=== PATIENT | male | born 1970 | race Caucasian/White ===

== ENCOUNTER 2023-08-11 01:35 | Inpatient (IN) ==
[2023-08-11] MEDS ORDERED: IOPAMIDOL 100 ML BOTTLE IV ONE (01:36)
[2023-08-11] MEDS ORDERED: ACETAMINOPHEN 500 MG TABLET PO ONE (01:57)
[2023-08-11] MEDS ORDERED: 0.9 % SODIUM CHLORIDE 1,000 ML IV ONE ×2 (01:57→06:45)
[2023-08-11] MEDS ORDERED: PIPERACILLIN SODIUM/TAZOBACTAM 3.375 GM in DEXTROSE 5% IN WATER 50 ML IV ONE (02:09)
[2023-08-11] MEDS ORDERED: ACETAMINOPHEN 1,000 MG/100 ML BAG IV ONE (02:18)
[2023-08-11 03:03] LABS: ALT/SGPT 13 U/L (<40); AST/SGOT 18 U/L (<40); Albumin 4.1 gm/dL (3.2-5.2); Albumin/Globulin Ratio 1.3 (1.0-2.3); Alkaline Phosphatase 95 U/L (39-117); Bilirubin,Total 0.6 mg/dL (0.1-1.0); Blood Urea Nitrogen 15 mg/dL (6-20); Calcium 9.9 mg/dL (8.6-10.4); Carbon Dioxide 22 mmol/L (22-30); Chloride 109 mmol/L (96-108); Globulin 3.1 gm/dL (2.2-3.7); Glomerular Filtration Rate 103; Glucose 137 mg/dL (70-105)
[2023-08-11 03:13] LABS: Hematocrit 43.2 % (40.1-51.0); Mean Cell Volume 93.1 fL (80.0-100.0); Mean Corpuscular HGB Conc 32.4 g/dL (31.0-36.0); Mean Platelet Volume 12.4 fL (8.8-12.5); Platelet Count 175 K/mcL (140-440); RBC 4.64 M/mcL (4.63-6.08); Red Cell Distribution Width 13.2 % (11.5-14.5); WBC 11.4 K/mcL (4.5-11.0)
[2023-08-11 03:56] LABS: Band Neutrophils % 13 % (0-10); Lymphocytes % 10 % (15-49); Monocytes % (Manual) 5 % (1-12); Platelet Estimate NORMAL (Normal); RBC Morphology NORMAL (Normal); Segmented Neutrophils % 72 % (38-78)
[2023-08-11] MEDS ORDERED: DIAZEPAM 10 MG/2 ML SYRINGE IV ONE (04:04)
[2023-08-11 04:40] LABS: Appearance,Urine TURBID (Clear); Bacteria,Urine MANY /hpf (0); Bilirubin,Urine Negative (Negative); Color,Urine YELLOW; Culture Indicated,Urine Yes; Glucose,Urine (UA) Negative (Negative); Ketones,Urine 20 mg/dL (Negative); Leukocyte Esterase,Urine 250 /uL (Negative); Mucus,Urine MANY /hpf; Nitrate,Urine Negative (Negative); Protein,Urine 100 mg/dL (Negative); Specific Gravity,Urine 1.026 (1.000-1.035); Urine Amorphous Crystals MANY /hpf; Urine Blood 0.03 mg/dL (Negative); Urine RBC 146 /hpf (0-3); Urine Squamous Epithelial Cell 0 /hpf (0-4); Urine Transitional Epi Cells 9 /hpf (0-2); Urine WBC > 182 /hpf (0-4)
[2023-08-11] MEDS ORDERED: ONDANSETRON 4 MG/2 ML VIAL IV ONE (06:45)
[2023-08-11] MEDS ORDERED: KETOROLAC 15 MG/ML VIAL IV ONE (06:45)
[2023-08-11 07:41] LABS: Lithium Test 0.8 mmol/L
[2023-08-11] MEDS ORDERED: ONDANSETRON 4 MG/2 ML VIAL IV PRN (08:02)
[2023-08-11] MEDS ORDERED: traZODone HCL 50 MG TABLET PO PRN (08:02)
[2023-08-11] MEDS ORDERED: SENNOSIDES 1 TABLET PO PRN (08:02)
[2023-08-11] MEDS ORDERED: IBUPROFEN 600 MG TABLET PO PRN (08:02)
[2023-08-11] MEDS ORDERED: ACETAMINOPHEN 325 MG TABLET PO PRN (08:02)
[2023-08-11] MEDS: LACTATED RINGERS 1,000 ML IV SCH ×2 (08:43→23:01)
[2023-08-11] MEDS: cefTRIAXone 2 GM in DEXTROSE 5% IN WATER 50 ML IV SCH (09:09)
[2023-08-11] MEDS ORDERED: ACETAMINOPHEN 500 MG TABLET PO PRN (10:10)
[2023-08-11] MEDS ORDERED: IBUPROFEN 200 MG TABLET PO PRN (10:18)
[2023-08-11] MEDS ORDERED: BENZTROPINE 1 MG TABLET PO ONE (10:36)
[2023-08-11] MEDS ORDERED: LORazepam 1 MG TABLET PO ONE (10:36)
[2023-08-11] MEDS ORDERED: OLANZapine 5 MG TABLET PO ONE (10:37)
[2023-08-11] MEDS ORDERED: DIVALPROEX SODIUM 250 MG TABLET PO STA (10:37)
[2023-08-11] MEDS ORDERED: clonazePAM 0.5 MG TABLET PO ONE (10:37)
[2023-08-11] MEDS: 0.9 % SODIUM CHLORIDE 10 ML SYRINGE IV SCH ×2 (12:40→20:36)
[2023-08-11 14:07] LABS: Lithium Test 0.7 mmol/L
[2023-08-11] MEDS: HALOPERIDOL 5 MG TABLET PO SCH (20:33)
[2023-08-11] MEDS: BENZTROPINE 1 MG TABLET PO SCH (20:33)
[2023-08-11] MEDS: LITHIUM CARBONATE 150 MG CAPSULE PO SCH (20:34)
[2023-08-11] MEDS: LORazepam 1 MG TABLET PO SCH (20:34)
[2023-08-11] MEDS: OLANZapine 5 MG TABLET PO SCH (20:34)
[2023-08-11] MEDS: PROPRANOLOL 40 MG TABLET PO SCH (20:35)
[2023-08-11] MEDS: ATORVASTATIN 10 MG TABLET PO SCH (20:35)
[2023-08-11] MEDS: DIVALPROEX SODIUM 250 MG TABLET PO SCH (20:36)
[2023-08-11] MEDS ORDERED: DIVALPROEX SODIUM 250 MG TABLET PO SCH (21:00)
[2023-08-11] MEDS ORDERED: LORazepam 1 MG TABLET PO SCH (21:00)
[2023-08-12] MEDS: 0.9 % SODIUM CHLORIDE 10 ML SYRINGE IV SCH ×3 (06:22→22:04)
[2023-08-12 06:37] LABS: ALT/SGPT 16 U/L (<40); AST/SGOT 20 U/L (<40); Albumin 3.6 gm/dL (3.2-5.2); Albumin/Globulin Ratio 1.2 (1.0-2.3); Alkaline Phosphatase 90 U/L (39-117); Bilirubin,Total 0.4 mg/dL (0.1-1.0); Blood Urea Nitrogen 9 mg/dL (6-20); Calcium 9.7 mg/dL (8.6-10.4); Carbon Dioxide 23 mmol/L (22-30); Chloride 112 mmol/L (96-108); Glomerular Filtration Rate 108; Glucose 101 mg/dL (70-105)
[2023-08-12] MEDS: OMEPRAZOLE 20 MG CAPSULE PO SCH (07:14)
[2023-08-12] MEDS: DEXTROSE 5%-LR 1,000 ML IV SCH ×2 (07:15→21:27)
[2023-08-12 07:21] LABS: Basophils # (Auto) 0.05 K/mcL (0.00-0.30); Basophils % (Auto) 0.4 % (0.0-2.0); Eosinophils # (Auto) 0.16 K/mcL (0.00-0.70); Eosinophils % (Auto) 1.4 % (0.0-7.0); Hematocrit 42.7 % (40.1-51.0); Lymphocytes # (Auto) 1.86 K/mcL (1.50-4.80); Lymphocytes % (Auto) 16.7 % (15.5-49.0); Mean Corpuscular HGB Conc 30.4 g/dL (31.0-36.0); Mean Platelet Volume 11.7 fL (8.8-12.5); Monocytes # (Auto) 0.92 K/mcL (0.10-0.90); Monocytes % (Auto) 8.3 % (1.0-12.0); Neutrophils % (Auto) 72.5 % (38.0-78.0); Platelet Count 190 K/mcL (140-440); RBC 4.27 M/mcL (4.63-6.08); Red Cell Distribution Width 13.1 % (11.5-14.5); WBC 11.1 K/mcL (4.5-11.0)
[2023-08-12] MEDS: cefTRIAXone 2 GM in DEXTROSE 5% IN WATER 50 ML IV SCH (08:54)
[2023-08-12] MEDS ORDERED: [UNRECOGNIZED DRUG - OTHER] IM SCH (09:00)
[2023-08-12] MEDS ORDERED: PALIPERIDONE PALMITATE IM SCH (09:00)
[2023-08-12] MEDS ORDERED: FLUoxetine HCL 20 MG CAPSULE PO SCH (09:00)
[2023-08-12] MEDS: FINASTERIDE 5 MG TABLET PO SCH (09:01)
[2023-08-12] MEDS: FLUoxetine HCL 20 MG CAPSULE PO SCH (09:01)
[2023-08-12] MEDS: TAMSULOSIN 0.4 MG CAPSULE PO SCH (09:01)
[2023-08-12] MEDS: OLANZapine 5 MG TABLET PO SCH ×2 (09:02→20:37)
[2023-08-12] MEDS: DIVALPROEX SODIUM 250 MG TABLET PO SCH ×3 (09:02→20:38)
[2023-08-12] MEDS: PROPRANOLOL 40 MG TABLET PO SCH ×2 (09:02→20:38)
[2023-08-12] MEDS: clonazePAM 0.5 MG TABLET PO SCH (09:03)
[2023-08-12] MEDS: LORazepam 1 MG TABLET PO SCH ×2 (09:03→20:37)
[2023-08-12] MEDS: LITHIUM CARBONATE 150 MG CAPSULE PO SCH ×2 (09:03→20:37)
[2023-08-12] MEDS: BENZTROPINE 1 MG TABLET PO SCH ×2 (09:03→20:37)
[2023-08-12] MEDS: LORazepam 2 MG/ML VIAL IV PRN ×2 (10:26→14:25)
[2023-08-12] MEDS: hydrOXYzine 25 MG TABLET PO PRN (12:48)
[2023-08-12] MEDS: ATORVASTATIN 10 MG TABLET PO SCH (20:36)
[2023-08-12] MEDS: HALOPERIDOL 5 MG TABLET PO SCH (20:36)
[2023-08-12] MEDS: POLYETHYLENE GLYCOL 3350 17 GM PACKET PO SCH (20:36)
[2023-08-12] MEDS ORDERED: CEFEPIME 1 GM VIAL IV SCH (21:15)
[2023-08-13] MEDS: hydrOXYzine 25 MG TABLET PO PRN ×2 (00:10→23:52)
[2023-08-13] MEDS: 0.9 % SODIUM CHLORIDE 10 ML SYRINGE IV SCH ×4 (01:08→20:15)
[2023-08-13] MEDS: LORazepam 2 MG/ML VIAL IV PRN (01:11)
[2023-08-13 06:54] LABS: Basophils # (Auto) 0.02 K/mcL (0.00-0.30); Basophils % (Auto) 0.2 % (0.0-2.0); Eosinophils # (Auto) 0.29 K/mcL (0.00-0.70); Eosinophils % (Auto) 3.4 % (0.0-7.0); Hematocrit 41.1 % (40.1-51.0); Hemoglobin 12.9 g/dL (13.7-17.5); Lymphocytes % (Auto) 15.2 % (15.5-49.0); Mean Cell Volume 97.2 fL (80.0-100.0); Mean Corpuscular HGB Conc 31.4 g/dL (31.0-36.0); Mean Platelet Volume 11.2 fL (8.8-12.5); Neutrophils % (Auto) 73.6 % (38.0-78.0); Platelet Count 184 K/mcL (140-440); RBC 4.23 M/mcL (4.63-6.08); Red Cell Distribution Width 13.2 % (11.5-14.5); WBC 8.5 K/mcL (4.5-11.0)
[2023-08-13 07:14] LABS: ALT/SGPT 39 U/L (<40); AST/SGOT 32 U/L (<40); Albumin 3.5 gm/dL (3.2-5.2); Albumin/Globulin Ratio 1.3 (1.0-2.3); Alkaline Phosphatase 82 U/L (39-117); Bilirubin,Total 0.3 mg/dL (0.1-1.0); Blood Urea Nitrogen 10 mg/dL (6-20); Calcium 9.4 mg/dL (8.6-10.4); Carbon Dioxide 25 mmol/L (22-30); Chloride 114 mmol/L (96-108); Globulin 2.8 gm/dL (2.2-3.7); Glomerular Filtration Rate 108; Glucose 105 mg/dL (70-105)
[2023-08-13] MEDS: PROPRANOLOL 40 MG TABLET PO SCH ×2 (08:28→20:31)
[2023-08-13] MEDS: FLUoxetine HCL 20 MG CAPSULE PO SCH (08:29)
[2023-08-13] MEDS: FINASTERIDE 5 MG TABLET PO SCH (08:29)
[2023-08-13] MEDS: LITHIUM CARBONATE 150 MG CAPSULE PO SCH ×2 (08:30→20:30)
[2023-08-13] MEDS: TAMSULOSIN 0.4 MG CAPSULE PO SCH (08:31)
[2023-08-13] MEDS: LORazepam 1 MG TABLET PO SCH ×2 (08:31→20:31)
[2023-08-13] MEDS: DIVALPROEX SODIUM 250 MG TABLET PO SCH ×3 (08:31→20:31)
[2023-08-13] MEDS: OMEPRAZOLE 20 MG CAPSULE PO SCH (08:31)
[2023-08-13] MEDS: clonazePAM 0.5 MG TABLET PO SCH (08:31)
[2023-08-13] MEDS: POLYETHYLENE GLYCOL 3350 17 GM PACKET PO SCH (08:33)
[2023-08-13] MEDS: BENZTROPINE 1 MG TABLET PO SCH ×2 (08:33→20:32)
[2023-08-13] MEDS: ENOXAPARIN 40 MG/0.4 ML SYRINGE SQ SCH (08:33)
[2023-08-13] MEDS: OLANZapine 5 MG TABLET PO SCH ×2 (08:34→20:30)
[2023-08-13] MEDS: DEXTROSE 5% IN WATER 750 ML IV SCH ×2 (08:35→16:21)
[2023-08-13] MEDS: cefTRIAXone 1 GM VIAL IV SCH (08:37)
[2023-08-13] MEDS ORDERED: NALOXONE HCL 0.4 MG/ML VIAL IV ONE (09:58)
[2023-08-13] MEDS ORDERED: FLUMAZENIL 0.1 MG/ML ML IV ONE (10:15)
[2023-08-13] MEDS: DEXTROSE 5% IN WATER 1,000 ML IV SCH ×2 (15:43→23:52)
[2023-08-13] MEDS ORDERED: DEXTROSE 5% IN WATER 750 ML IV SCH (15:45)
[2023-08-13] MEDS: ATORVASTATIN 10 MG TABLET PO SCH (20:31)
[2023-08-13] MEDS: HALOPERIDOL 5 MG TABLET PO SCH (20:31)
[2023-08-14] MEDS: DEXTROSE 5% IN WATER 1,000 ML IV SCH ×2 (01:47→07:16)
[2023-08-14] MEDS: 0.9 % SODIUM CHLORIDE 10 ML SYRINGE IV SCH (05:30)
[2023-08-14] MEDS: hydrOXYzine 25 MG TABLET PO PRN (06:33)
[2023-08-14] MEDS: OMEPRAZOLE 20 MG CAPSULE PO SCH (06:33)
[2023-08-14 08:19] LABS: Basophils # (Auto) 0.04 K/mcL (0.00-0.30); Basophils % (Auto) 0.5 % (0.0-2.0); Eosinophils # (Auto) 0.39 K/mcL (0.00-0.70); Eosinophils % (Auto) 5.2 % (0.0-7.0); Hematocrit 43.8 % (40.1-51.0); Hemoglobin 13.6 g/dL (13.7-17.5); Lymphocytes # (Auto) 1.65 K/mcL (1.50-4.80); Lymphocytes % (Auto) 22.2 % (15.5-49.0); Mean Cell Volume 96.9 fL (80.0-100.0); Mean Corpuscular HGB Conc 31.1 g/dL (31.0-36.0); Mean Platelet Volume 10.9 fL (8.8-12.5); Monocytes # (Auto) 0.46 K/mcL (0.10-0.90); Monocytes % (Auto) 6.2 % (1.0-12.0); Neutrophils % (Auto) 62.4 % (38.0-78.0); Platelet Count 212 K/mcL (140-440); RBC 4.52 M/mcL (4.63-6.08); WBC 7.4 K/mcL (4.5-11.0)
[2023-08-14] MEDS: PROPRANOLOL 40 MG TABLET PO SCH (08:22)
[2023-08-14] MEDS: DIVALPROEX SODIUM 250 MG TABLET PO SCH (08:22)
[2023-08-14] MEDS: POLYETHYLENE GLYCOL 3350 17 GM PACKET PO SCH (08:23)
[2023-08-14] MEDS: FLUoxetine HCL 20 MG CAPSULE PO SCH (08:23)
[2023-08-14] MEDS: LORazepam 1 MG TABLET PO SCH (08:23)
[2023-08-14] MEDS: OLANZapine 5 MG TABLET PO SCH (08:23)
[2023-08-14] MEDS: TAMSULOSIN 0.4 MG CAPSULE PO SCH (08:24)
[2023-08-14] MEDS: clonazePAM 0.5 MG TABLET PO SCH (08:24)
[2023-08-14] MEDS: LITHIUM CARBONATE 150 MG CAPSULE PO SCH (08:24)
[2023-08-14] MEDS: BENZTROPINE 1 MG TABLET PO SCH (08:24)
[2023-08-14] MEDS: FINASTERIDE 5 MG TABLET PO SCH (08:24)
[2023-08-14] MEDS: cefTRIAXone 1 GM VIAL IV SCH (08:25)
[2023-08-14] MEDS: ENOXAPARIN 40 MG/0.4 ML SYRINGE SQ SCH (08:25)
[2023-08-14 08:47] LABS: ALT/SGPT 38 U/L (<40); AST/SGOT 29 U/L (<40); Albumin 3.7 gm/dL (3.2-5.2); Albumin/Globulin Ratio 1.3 (1.0-2.3); Alkaline Phosphatase 85 U/L (39-117); Bilirubin,Total 0.3 mg/dL (0.1-1.0); Blood Urea Nitrogen 7 mg/dL (6-20); Calcium 9.6 mg/dL (8.6-10.4); Carbon Dioxide 23 mmol/L (22-30); Chloride 108 mmol/L (96-108); Globulin 2.9 gm/dL (2.2-3.7); Glomerular Filtration Rate 108; Glucose 123 mg/dL (70-105)
[2023-08-15] MEDS ORDERED: CEFDINIR 300 MG CAPSULE PO SCH (09:00)
== END 2023-08-14 11:33 | DRG 690 ==
LOC: ED 01:35 → MEDSUR 07:30 → ICU 11:02
PROVIDERS: ADMIT Internal Medicine; ATTEND Internal Medicine

== ENCOUNTER 2023-08-25 18:22 | Inpatient (IN) ==
[2023-08-25] MEDS: LORazepam 2 MG/ML VIAL IM ONE (18:45)
[2023-08-25 20:00] LABS: Basophils # (Auto) 0.05 K/mcL (0.00-0.30); Basophils % (Auto) 0.4 % (0.0-2.0); Eosinophils # (Auto) 0.16 K/mcL (0.00-0.70); Eosinophils % (Auto) 1.2 % (0.0-7.0); Hematocrit 47.4 % (40.1-51.0); Hemoglobin 14.6 g/dL (13.7-17.5); Lymphocytes # (Auto) 2.61 K/mcL (1.50-4.80); Lymphocytes % (Auto) 19.8 % (15.5-49.0); Mean Cell Volume 96.9 fL (80.0-100.0); Mean Corpuscular HGB Conc 30.8 g/dL (31.0-36.0); Mean Platelet Volume 12.6 fL (8.8-12.5); Monocytes # (Auto) 0.71 K/mcL (0.10-0.90); Monocytes % (Auto) 5.4 % (1.0-12.0); Neutrophils % (Auto) 72.8 % (38.0-78.0); Platelet Count 221 K/mcL (140-440); RBC 4.89 M/mcL (4.63-6.08); Red Cell Distribution Width 13.5 % (11.5-14.5); WBC 13.2 K/mcL (4.5-11.0)
[2023-08-25 20:31] LABS: Appearance,Urine Clear (Clear); Bilirubin,Urine Small mg/dL (Negative); Color,Urine Yellow; Culture Indicated,Urine No; Glucose,Urine (UA) Negative (Negative); Ketones,Urine 15 mg/dL (Negative); Leukocyte Esterase,Urine Negative /uL (Negative); Nitrate,Urine Negative (Negative); PH,Urine 6.5 (5.0-9.0); Protein,Urine Negative (Negative); Urine Blood Negative ery/mcL (Negative); Urine RBC 1 /hpf (0-3); Urine Squamous Epithelial Cell 0 /hpf (0-4); Urine WBC 1 /hpf (0-4); Urobilinogen,Urine Normal
[2023-08-25 20:31] LABS: ALT/SGPT 14 U/L (<40); AST/SGOT 20 U/L (<40); Albumin 4.2 gm/dL (3.2-5.2); Albumin/Globulin Ratio 1.8 (1.0-2.3); Alkaline Phosphatase 90 U/L (39-117); Bilirubin,Total 0.5 mg/dL (0.1-1.0); Blood Urea Nitrogen 17 mg/dL (6-20); Calcium 9.9 mg/dL (8.6-10.4); Carbon Dioxide 27 mmol/L (22-30); Chloride 115 mmol/L (96-108); Globulin 2.4 gm/dL (2.2-3.7); Glomerular Filtration Rate 77; Glucose 89 mg/dL (70-105)
[2023-08-25] MEDS: cefTRIAXone 1 GM VIAL IV ONE (21:11)
[2023-08-25] MEDS: DEXTROSE 5% IN WATER 1,000 ML IV SCH ×2 (21:26→21:55)
[2023-08-25 21:41] LABS: POC Calcium, Ionized 1.27 (1.16-1.32); POC Creatinine 1.1 (0.6-1.2); POC Potassium 3.5 (3.3-5.1)
[2023-08-25 22:25] LABS: Band Neutrophils % 1 % (0-10); Eosinophils % (Manual) 2 % (0-7); Hypochromasia 1+ (None Seen); Lymphocytes % 27 % (15-49); Monocytes % (Manual) 3 % (1-12); Platelet Estimate NORMAL (Normal); RBC Morphology ABNORMAL (Normal); Segmented Neutrophils % 67 % (38-78)
[2023-08-25 22:26] LABS: C-Reactive Protein < 0.30 mg/dL (0.03-0.80); Thyroid Stimulating Hormone 1.42 uIU/mL (0.27-5.01)
[2023-08-25 23:10] LABS: Lithium Test 1.7 mmol/L
[2023-08-25 23:40] LABS: POC Calcium, Ionized 1.35 (1.16-1.32); POC Creatinine 1.1 (0.6-1.2); POC Potassium 3.6 (3.3-5.1)
[2023-08-26] MEDS ORDERED: [UNRECOGNIZED DRUG - OTHER] IV SCH (00:15)
[2023-08-26] MEDS ORDERED: DEXTROSE 5% IV SCH (00:15)
[2023-08-26] MEDS: DEXTROSE 5%-1/2NS 1,000 ML IV SCH ×2 (00:19→13:01)
[2023-08-26] MEDS: LORazepam 2 MG/ML VIAL IV ONE (02:14)
[2023-08-26] MEDS: LORazepam 2 MG/ML VIAL ONE (03:54)
[2023-08-26] MEDS ORDERED: traZODone HCL 50 MG TABLET PO PRN (07:51)
[2023-08-26] MEDS ORDERED: MAGNESIUM SULFATE 2 GM/50 ML BAG IV PRN (08:03)
[2023-08-26] MEDS ORDERED: POTASSIUM CHLORIDE 40 MEQ in DEXTROSE 5% IN WATER 500 ML IV PRN (08:03)
[2023-08-26] MEDS ORDERED: ONDANSETRON 4 MG/2 ML VIAL IV PRN (08:03)
[2023-08-26] MEDS ORDERED: IPRATROPIUM/ALBUTEROL 3 ML AMPUL.NEB NEB PRN (08:03)
[2023-08-26] MEDS ORDERED: ENALAPRILAT 1.25 MG/ML VIAL IV PRN (08:03)
[2023-08-26] MEDS ORDERED: POTASSIUM CHLORIDE 20 MEQ TABLET PO PRN (08:03)
[2023-08-26] MEDS ORDERED: SENNOSIDES 1 TABLET PO PRN (08:03)
[2023-08-26] MEDS ORDERED: SENNOSIDES/DOCUSATE SODIUM 1 TAB TABLET PO PRN (08:12)
[2023-08-26 08:36] LABS: Basophils # (Auto) 0.03 K/mcL (0.00-0.30); Basophils % (Auto) 0.3 % (0.0-2.0); Eosinophils # (Auto) 0.15 K/mcL (0.00-0.70); Eosinophils % (Auto) 1.4 % (0.0-7.0); Hematocrit 42.1 % (40.1-51.0); Hemoglobin 13.8 g/dL (13.7-17.5); Lymphocytes # (Auto) 1.83 K/mcL (1.50-4.80); Mean Cell Volume 91.9 fL (80.0-100.0); Mean Corpuscular HGB Conc 32.8 g/dL (31.0-36.0); Mean Platelet Volume 12.3 fL (8.8-12.5); Monocytes # (Auto) 0.55 K/mcL (0.10-0.90); Monocytes % (Auto) 5.1 % (1.0-12.0); Neutrophils % (Auto) 75.5 % (38.0-78.0); Platelet Count 193 K/mcL (140-440); RBC 4.58 M/mcL (4.63-6.08); Red Cell Distribution Width 13.5 % (11.5-14.5); WBC 10.8 K/mcL (4.5-11.0)
[2023-08-26 08:45] LABS: ALT/SGPT 9 U/L (<40); AST/SGOT 22 U/L (<40); Albumin 4.1 gm/dL (3.2-5.2); Albumin/Globulin Ratio 1.9 (1.0-2.3); Alkaline Phosphatase 88 U/L (39-117); Bilirubin,Direct < 0.2 mg/dL (0-0.3); Bilirubin,Total 0.5 mg/dL (0.1-1.0); Blood Urea Nitrogen 12 mg/dL (6-20); Calcium 9.7 mg/dL (8.6-10.4); Carbon Dioxide 24 mmol/L (22-30); Chloride 112 mmol/L (96-108); Globulin 2.2 gm/dL (2.2-3.7); Glomerular Filtration Rate 103; Glucose 140 mg/dL (70-105); Lactate Dehydrogenase 225 U/L (135-225); Triglycerides 121 mg/dL (<150); Uric Acid 10.5 mg/dL (2.5-8.0)
[2023-08-26] MEDS: ACETAMINOPHEN 500 MG TABLET PO PRN (08:47)
[2023-08-26] MEDS: LORazepam 1 MG TABLET PO PRN ×2 (08:47→21:58)
[2023-08-26] MEDS: POLYETHYLENE GLYCOL 3350 17 GM PACKET PO SCH (09:02)
[2023-08-26] MEDS: ENOXAPARIN 40 MG/0.4 ML SYRINGE SQ SCH (09:02)
[2023-08-26] MEDS: clonazePAM 0.5 MG TABLET PO SCH (09:03)
[2023-08-26] MEDS: OMEPRAZOLE 20 MG CAPSULE PO SCH (09:03)
[2023-08-26] MEDS: DIVALPROEX SODIUM 250 MG TABLET PO SCH (09:03)
[2023-08-26] MEDS: FLUoxetine HCL 20 MG CAPSULE PO SCH (09:03)
[2023-08-26] MEDS: 0.45 % SODIUM CHLORIDE 500 ML IV ONE (09:03)
[2023-08-26] MEDS: DOCUSATE SODIUM 100 MG CAPSULE PO SCH (09:03)
[2023-08-26] MEDS: BENZTROPINE 1 MG TABLET PO SCH (09:03)
[2023-08-26] MEDS: TAMSULOSIN 0.4 MG CAPSULE PO SCH (09:03)
[2023-08-26 09:21] LABS: Sodium, Urine Random 49 mmol/L
[2023-08-26 10:18] LABS: Osmolality,Urine 552 mOSM/kg (80-1000)
[2023-08-26] MEDS: PROPRANOLOL 40 MG TABLET PO SCH (16:09)
[2023-08-26] MEDS: FINASTERIDE 5 MG TABLET PO SCH (16:45)
[2023-08-26] MEDS ORDERED: BENZTROPINE 1 MG TABLET PO PRN (17:00)
[2023-08-26] MEDS ORDERED: QUEtiapine 100 MG TABLET PO PRN (18:02)
[2023-08-26] MEDS: hydrOXYzine 25 MG TABLET PO PRN (18:35)
[2023-08-26] MEDS: QUEtiapine 100 MG TABLET PO SCH (20:02)
[2023-08-26] MEDS: ATORVASTATIN 10 MG TABLET PO SCH (20:02)
[2023-08-27 05:48] LABS: Basophils # (Auto) 0.03 K/mcL (0.00-0.30); Basophils % (Auto) 0.3 % (0.0-2.0); Eosinophils # (Auto) 0.21 K/mcL (0.00-0.70); Eosinophils % (Auto) 2.3 % (0.0-7.0); Hematocrit 39.2 % (40.1-51.0); Hemoglobin 12.2 g/dL (13.7-17.5); Lymphocytes # (Auto) 2.31 K/mcL (1.50-4.80); Lymphocytes % (Auto) 25.2 % (15.5-49.0); Mean Cell Volume 97.5 fL (80.0-100.0); Mean Corpuscular HGB Conc 31.1 g/dL (31.0-36.0); Mean Platelet Volume 12.3 fL (8.8-12.5); Monocytes # (Auto) 0.57 K/mcL (0.10-0.90); Monocytes % (Auto) 6.2 % (1.0-12.0); Neutrophils % (Auto) 65.5 % (38.0-78.0); Platelet Count 163 K/mcL (140-440); RBC 4.02 M/mcL (4.63-6.08); Red Cell Distribution Width 13.6 % (11.5-14.5); WBC 9.2 K/mcL (4.5-11.0)
[2023-08-27 06:11] LABS: ALT/SGPT 8 U/L (<40); AST/SGOT 16 U/L (<40); Albumin 3.4 gm/dL (3.2-5.2); Albumin/Globulin Ratio 1.8 (1.0-2.3); Alkaline Phosphatase 73 U/L (39-117); Bilirubin,Direct < 0.2 mg/dL (0-0.3); Bilirubin,Total 0.3 mg/dL (0.1-1.0); Blood Urea Nitrogen 8 mg/dL (6-20); Calcium 8.8 mg/dL (8.6-10.4); Carbon Dioxide 25 mmol/L (22-30); Chloride 108 mmol/L (96-108); Globulin 1.9 gm/dL (2.2-3.7); Glomerular Filtration Rate 98; Glucose 104 mg/dL (70-105); Lactate Dehydrogenase 169 U/L (135-225); Triglycerides 144 mg/dL (<150); Uric Acid 8.8 mg/dL (2.5-8.0)
[2023-08-27] MEDS: POTASSIUM CHLORIDE 20 MEQ TABLET PO PRN (08:44)
[2023-08-27] MEDS: QUEtiapine 100 MG TABLET PO SCH (08:44)
[2023-08-27] MEDS: [UNRECOGNIZED DRUG - OTHER] IV ONE (08:47)
[2023-08-27] MEDS: DEXTROSE 5% IV ONE (08:47)
== END 2023-08-27 12:20 | DRG 640 ==
LOC: ED 18:22 → ICU 08-26 00:57
PROVIDERS: ADMIT Internal Medicine; ATTEND Internal Medicine